=== PATIENT | male | born 1990 | race Caucasian/White ===

== ENCOUNTER 2016-08-26 10:48 | Emergency (ER) | payer OTHER ==
[~2016-08-26] VITALS: Ht 175.3 cm; Wt 105.0 kg
[2016-08-26 10:55] VITALS: TEMP 36.6; Ht 175.3 cm; Wt 105.0 kg
[2016-08-26] MEDS ORDERED: VENL75TA4 PO (11:01)
[2016-08-26] MEDS ORDERED: MELA1CAP9 PO (11:01)
--- NOTE | 2016-08-26 11:51 | DIAGNOSTIC IMAGING REPORT ---
RIGHT KNEE 3 VIEWS HISTORY: pain, injury, right knee Right COMPARISON: None. FINDINGS: There is no fracture or dislocation. Soft tissues are unremarkable. No radiopaque foreign bodies. No knee effusion. IMPRESSION: No fractures. Electronically signed by: Logan Matamoros M.D. 08/26/2016 11:50 AM Dictated Date/Time: 08/26/2016 11:49 AM
[2016-08-26] MEDS ORDERED: ACETAMINOPHEN 500 MG TAB PO STA (11:52)
[2016-08-26] MEDS ORDERED: OXYC1TAB3 PO (12:29)
--- NOTE | 2016-08-26 12:31 | EMERGENCY ROOM VISIT NOTE ---
History First contact with patient: 11:30 Chief Complaint: KNEEPAIN Stated Complaint: RIGHT KNEE PAIN History of Present Illness The patient is a 26 year old male who presents to the Emergency Room via private vehicle accompanied by female with complaints of "right knee pain". The patient states that yesterday around 2 PM, he was playing shortstop position during a softball game at the [employer]. He states that someone slid into him, causing his right knee to buckle, and then as he was running around the bases he went to stop abruptly, and the right knee appeared to hyperextend. He notes a burning sensation in the medial anterior aspect of the right knee that he rates as a 7/10. He is taken Maco back and body this morning around 7 AM with minimal relief. This was believed to be 500 mg. He denies any numbness or tingling in the distal extremity. He follows with Dr. Salazar for previous injury. Review of Systems A complete 6-point Review of Systems was discussed with the patient, with pertinent positives and negatives listed in the History of Present Illness. All remaining Review of Systems questions can be considered negative unless otherwise specified. Past Medical/Surgical History Anterior cruciate ligament right knee injury 2003 Family History No pertinent family history at this time. Social History Smoking Status: Current Every Day Smoker Social History: Patient was participating in the [employer]. Current/Historical Medications Scheduled Melatonin (Melatonin), 10 MG PO HS Venlafaxine Hcl (Effexor), 150 MG PO BID Scheduled PRN Oxycodone Ir (Roxicodone Ir), 1-2 TAB PO Q4H PRN for Pain Allergies Coded Allergies: No Known Allergies (Unverified , 08/26/16) Physical Exam Vital Signs Date Time Temp Pulse Resp B/P (MAP) Pulse Ox O2 Delivery O2 Flow Rate FiO2 08/26/16 12:41 68 16 148/80 97 08/26/16 10:55 36.6 72 16 150/88 95 Room Air Physical Exam VITAL SIGNS - Vital signs and nursing notes were reviewed. Patient is afebrile , hypertensive at 150/88, non-tachycardic and saturating well on room air 95%. GENERAL -26-year-old male appearing his stated age who is in no acute distress. Communicates well with provider and answers questions appropriately. SKIN - Without rashes. Skin overlying the right knee is unremarkable. EXTREMITIES - No clubbing or peripheral cyanosis. No pretibial edema present. There is tenderness palpation overlying the medial aspect of the right knee. There is near full range of motion. No edema or integument disruption noted. No laxity to the knee joint noted. +5/5 strength noted in UE/LE bilaterally. Medical Decision & Procedures ER Provider Diagnostic Interpretation: RIGHT KNEE 3 VIEWS HISTORY: pain, injury, right knee Right COMPARISON: None. FINDINGS: There is no fracture or dislocation. Soft tissues are unremarkable. No radiopaque foreign bodies. No knee effusion. IMPRESSION: No fractures. Electronically signed by: oLgan Matamoros M.D. 08/26/2016 11:50 AM Dictated Date/Time: 08/26/2016 11:49 AM Medications Administered Medications (Trade) Dose Ordered Sig/Best Route Start Time Stop Time Status Last Admin Dose Admin Acetaminophen (Tylenol Tab) 500 mg NOW STAT PO 08/26/16 11:52 08/26/16 11:53 DC 08/26/16 12:05 500 MG Medical Decision Patient was seen and evaluated as above. After obtaining a thorough history and physical examination patient was given ice packs, Tylenol for his pain and right knee 3 view was obtained. Results as above. No knee effusion noted. I do not suspect any tibial plateau fracture. It is possible the patient has sprained his knee, therefore he'll be placed in a knee immobilizer, made nonweightbearing with crutches and is a follow-up with orthopedics as soon as possible. He did question whether or not an MRI would be able to be obtained today, and I informed him that although that would be the ultimate imaging modality, I do not believe that it will warp changer at this time or is necessary today. I explained that even if there is a ligamentous injury, he will still receive the same knee immobilizer and crutches. I stated that it would be best if this was performed through the orthopedic surgeon if they felt it was necessary. He then verbalizes understanding, and seemed happy with plan of care. He was educated upon management today's findings, was fitted with a knee immobilizer and crutches, educated upon worrisome symptoms which to return , had questions prior to discharge and was discharged home in good condition. For breakthrough pain he'll be prescribed a short term course of OxyIR. In the evaluation and treatment of this patient, the following differential diagnoses were considered: Patellar Fracture, Tibial Plateau Fracture, Distal Femur Fracture, ACL Injury, PCL Injury, Collateral Ligament Injury, Pes Anserine Bursitis, Maisonneuve Fracture. [facility] Search Results: patient reviewed within database, no issues identified Impression Primary Impression: Knee pain Departure Information Dispostion Home / Self-Care Condition GOOD Prescriptions Oxycodone Ir (Roxicodone Ir) 5 Mg Tab 1-2 TAB PO Q4H Y for Pain, #15 TAB For Initial Treatment Prov: Nagi Crowell PA-C 08/26/16 Referrals No Doctor, Assigned (PCP) Yoav Hanna D.O. Patient Instructions [facility] Additional Instructions You have been treated in the Emergency Department for Knee Pain. You have been prescribed OXY IR to be used for pain control. This is a narcotic medication. You cannot drive or consume alcohol while on this medicine. This medicine should only be used for pain that cannot be controlled with over-the- counter pain medicines. For pain control, you can use the following [id number] medicines (if >12 yo): - Regular strength (325mg/tab) Tylenol (acetaminophen) 2 tabs every 4-6 hours as needed. Do not exceed 12 tablets in a 24 hour period. Avoid taking more than 3 grams (3000 mg) of Tylenol per day. This includes any other sources of acetaminophen you may take on a regular basis. - Regular strength (200 mg/tab) Advil (ibuprofen) 1-2 tabs every 4-6 hours as needed. Do not exceed a dose of 3200 mg per day. If this is a recent injury (<24 hrs), ice can be applied to the area of pain for the first 3 days to help decrease pain and inflammation. Ice massages can be performed by freezing water in a paper cup, peeling back the cup to expose the ice and then massaging over the affected area. You have been provided the number for an Orthopaedic Surgeon. You should call this number as soon as possible to establish a follow-up visit from today's Emergency Department visit. (Dr. Hanna) Keep the knee brace in place until cleared by Orthopedics. Use the crutches you have been provided to keep ALL weight off of the knee until weight bearing is tolerable. Return to the Emergency Department if your current symptoms worsen despite treatment course outlined above. Please return to the emergency department with any new/concerning symptoms.
[2016-08-26 12:41] VITALS: BP 148/80; PULSE 68; O2SAT 97
== END 2016-08-26 12:51 | disposition home or self-care (01) ==
LOC: C.EDB 10:50 → C.EDD 12:51
DX: S89.81XA Other specified injuries of right lower leg, initial encounter (principal); M25.561 Pain in right knee; Y93.64 Activity, baseball; Y92.320 Baseball field as the place of occurrence of the external cause